=== PATIENT | male | born 1990 | race Caucasian/White ===

== ENCOUNTER 2019-02-23 13:53 | Emergency (ER) | payer SELFPAY ==
[~2019-02-23] VITALS: Ht 167.6 cm; Wt 79.8 kg
[2019-02-23 13:56] VITALS: BP 159/97
--- NOTE | 2019-02-23 14:07 | NUR ---
PT C/O DIZZINES AND SHARP LT SIDED CP X 1 HOUR AND LASTING ABOUT 10 SEC. PT REPORTS "FEELING OF DOOM, AND ANXIOUS". PT DENIES SOB, N/V, OR RADIATION OF THE PAIN. PATIENT STATES PAIN OF 4/10 AT THIS TIME; VSS; PATIENT POSITIONED FOR COMFORT; HOB ELEVATED; BEDRAILS UP X1; BED DOWN. ER MD MADE AWARE OF PT STATUS.
--- NOTE | 2019-02-23 14:21 | NUR ---
VIOLETA Wyman is evaluating the patient at bedside.
[2019-02-23 15:51] VITALS: BP 118/74
== END 2019-02-23 15:51 | disposition home or self-care (01) ==
LOC: MED 13:53
DX: R07.89 Other chest pain (principal); F43.9 Reaction to severe stress, unspecified; Z87.898 Personal history of other specified conditions; E78.5 Hyperlipidemia, unspecified
CPT/HCPCS: 71045; 93005; 99283; Q0092